=== PATIENT | female | born 1990 | race Caucasian/White ===

== ENCOUNTER → 2017-06-16 | Outpatient (CLI) | payer BC ==
--- NOTE | ~2017-06-16 | US116 ---
[facility] A Service of [facility] & [facility] RADIOLOGY TEXT RESULTS PATIENT: NIKOS COUCH LOCATION: [facility] : 86 UNIT #: [id number] AGE: [address]: Socorro Roldan MD SEX: F ORDER DR: [id number] [address] [address] [id number] O MR#: [id number] Acc #: [id number] NAME: NIKOS COUCH : 1990 SEX: F STUDY DATE/TIME: 06/16/2017 9:38 UNIT: [facility] ROOM: STUDY DESCRIPTION: US Soft Tissue Head/Neck Attending Physician: Socorro Roldan M.D. Referring Physician: Socorro Roldan M.D. Ordering Physician: Socorro Roldan M.D. Primary Care Physician: Socorro Roldan M.D. MEDICAL IMAGING REPORT This report is preliminary unless electronic signature is present. EXAM Ultrasound neck soft tissue INDICATION Lump on the left posterior neck, and the hairline. Patient reports the lump comes and goes and is tender. She noticed it starting about 1.5 weeks ago. TECHNIQUE Davis-scale and color Doppler and sonographic images were obtained through the area of concern. FINDINGS Within the area of concern, there is a hypoechoic structure measuring 1.0 x 0.4 x 1.1 cm. No color Doppler flow is identified within the structure. On some of the images, there is suggestion of a fatty hilum although potentially it may reflect some echogenic debris within it. It appears well-circumscribed. IMPRESSION Hypoechoic structure measuring 1.0 x 0.4 x 1.1 cm is seen within the of area concern. It is indeterminate. Both reactive node and lipoma would be in the differential with reactive node being the favored diagnosis given history. If lesion persists and/or increases in size, it can be further evaluated with dedicated CT of the neck soft tissue with contrast. Dictated by... Yvette Carmichael M.D. THIS IS AN ELECTRONICALLY VERIFIED REPORT Yvette Carmichael M.D. at 06/17/2017 2:45 PM [facility] A Service of [facility] RADIOLOGY TEXT RESULTS PATIENT: NIKOS COUCH LOCATION: [facility] : 86 UNIT #: [id number] AGE: [address]: Socorro Roldan MD SEX: F ORDER DR: BEBETO/jeremias TD: 06/17/2017 09:12 JOB #: [id number] MEDICAL IMAGING REPORT Page 1 of 1
== END | disposition home or self-care (01) ==
LOC: SGUS 09:37
DX: R22.1 Localized swelling, mass and lump, neck (principal)
CPT/HCPCS: 76536